=== PATIENT | male | born 1960 | race Caucasian/White ===

== ENCOUNTER 2016-05-25 10:10 | Inpatient (IN) | payer BC ==
[2016-05-25] MEDS ORDERED: IPRATROPIUM/ALBUTEROL (0.5MG/3MG) NEB INH ONE (10:43)
[2016-05-25] MEDS ORDERED: BENZONATATE 100 MG CAPSULE PO ONE (10:43)
--- NOTE | 2016-05-25 10:43 | Emergency Department Record ---
History of Present Illness - General Chief Complaint: Cough Stated Complaint: COUGH Time Seen by Provider: 05/25/16 10:28 Source: Patient, Family Mode of Arrival: Ambulatory Limitations: No limitations - History of Present Illness Initial Comments: 55 yo male presents with continued cough, productive sputum that is grayish for the last several days. He has had sinus drainage as well. He has felt like he has had hot and cold spells. No rash. He has had sinus pressure and ear pressure. He has seen his doctor on 3 occasions in the last one month. He was treated with augmentin, zithromax twice. He had a CXR 04/22. No blood in the sputum. MD Complaint: Cough Onset/Timin -: Month(s) Severity: Moderate Severity scale (1-10): 3 Consistency: Constant - Related Data Home Medications Medication Instructions Recorded Confirmed Last Taken Omeprazole [Prilosec] 20 mg PO DAILY 04/04/15 05/25/16 1 Day Ago Calcium Citrate/Vitamin D3 1 each PO DAILY 10/31/15 05/25/16 1 Day Ago [Citracal-Vit D 200 mg-250 Tab] Tamoxifen Citrate 20 mg PO DAILY 10/31/15 05/25/16 1 Day Ago Fexofenadine/Pseudoephedrine 1 tab PO QD tab 12/18/15 05/25/16 1 Day Ago [Suzi-D 24 Hour Tablet] Testosterone [Androgel] 1 apply TOP DAILY #375 04/07/16 05/25/16 1 Day Ago Allergies Allergy/AdvReac Type Severity Reaction Status Date / Time No Known Drug Allergies Allergy Verified 05/25/16 10:23 Travel Screening - Travel/Exposure Within Last 30 Days Have you traveled within the last 30 days?: No - Travel/Exposure Within Last Year Have you traveled outside the [place] in the last year?: No - Additonal Travel Details Have you been exposed to anyone with a communicable illness?: No - Travel Symptoms Symptom Screening: None Review of Systems Constitutional: Reports: Chills, Fever Eyes: Denies: Eye discharge, Eye pain, Photophobia, Vision change ENT: Reports: Congestion, Ear pain, Throat pain Respiratory: Reports: Cough. Denies: Hemoptysis Cardiovascular: Denies: Chest pain, Palpitations, Syncope Endocrine: Denies: Fatigue, Polydipsia, Polyuria Gastrointestinal: Denies: Abdominal pain, Diarrhea, Nausea, Vomiting Genitourinary: Denies: Dysuria, Frequency, Hematuria, Urgency Musculoskeletal: Denies: Arthralgia, Back pain, Myalgia, Neck pain Skin: Denies: Bruising, Change in color, Rash Neurological: Denies: Headache, Numbness, Weakness Psychiatric: Denies: Anxiety Hematological/Lymphatic: Denies: Blood Clots, Easy bleeding, Easy bruising, Swollen glands Past Medical History - SOCIAL HISTORY Smoking Status: Never smoker Alcohol Use: None, Rare Drug Use: None - RESPIRATORY Hx Respiratory Disorders: Yes Hx Asthma: Yes Hx Bronchitis: Yes Hx Pneumonia: Yes Comment:: admitted in in 03/2015 for infuenza A - CARDIOVASCULAR Hx Cardio Disorders: Yes Hx Hypertension: Yes - NEURO Hx Neuro Disorders: No - GI Hx GI Disorders: Yes Hx Reflux: Yes - Hx Genitourinary Disorders: Yes Hx Kidney Stones: Yes - ENDOCRINE Hx Endocrine Disorders: Yes Hx Diabetes: Yes (borderline) - MUSCULOSKELETAL Hx Musculoskeletal Disorders: Yes Hx Arthritis: Yes Hx Osteoporosis: Yes - PSYCH Hx Psych Problems: Yes Hx Depression: Yes - HEMATOLOGY/ONCOLOGY Hx Hematology/Oncology Disorders: Yes Hx Cancer: Yes (breast, skin, pituitary) Hx Radiation Therapy: Yes Family Medical History Any Significant Family History?: Yes Physical Exam - General General Appearance: Alert, Oriented x3, Cooperative, No acute distress Limitations: No limitations - Head Head exam: Normal inspection - Eye Eye exam: Normal appearance, PERRL. negative: Conjunctival injection - ENT ENT exam: Normal exam, Mucous membranes moist, TM's normal bilaterally. negative: Normal orophraynx (mild erythema) Ear exam: Normal external inspection. negative: External canal tenderness Nasal Exam: Discharge Mouth exam: Normal external inspection, Tongue normal Teeth exam: Normal inspection. negative: Dental caries Throat exam: Tonsillar erythema. negative: Tonsillomegaly, Tonsillar exudate, R peritonsillar mass, L peritonsillar mass - Neck Neck exam: Normal inspection, Full ROM. negative: Tenderness - Respiratory Respiratory exam: Decreased breath sounds, Prolonged expiratory (mild), Rhonchi , Other (No conversational dyspnea). negative: Stridor, Wheezes - Cardiovascular Cardiovascular Exam: Regular rate, Normal rhythm, Normal heart sounds - GI/Abdominal GI/Abdominal exam: Soft - Rectal Rectal exam: Deferred - exam: Deferred - Extremities Extremities exam: Normal inspection, Full ROM, Normal capillary refill. negative: Tenderness - Back Back exam: Reports: Normal inspection, Full ROM. Denies: Muscle spasm, Rash noted, Tenderness - Neurological Neurological exam: Alert, Normal gait, Oriented X3 - Psychiatric Psychiatric exam: Normal affect, Normal mood. negative: Agitated, Anxious - Skin Skin exam: Dry, Intact, Normal color, Warm Course Vital Signs 05/25/16 10:12 Temperature 97.4 F L Pulse Rate 117 H Respiratory 20 Rate Blood Pressure 134/112 Pulse Ox 92 L - Reevaluation(s) Reevaluation #1: The labs were reviewed WBC is 14 (he is on steroids) Glucose is 317 (he is a diabetic) 05/25/16 11:48 Reevaluation #2: No acute changes on the CXR No changes from the prior CXR 05/25/16 11:48 Reevaluation #3: The patient has continued to cough, short of breath, in spite prior out patient treatment 05/25/16 11:58 Reevaluation #4: I SW the radiology, no central PE but the remainder limited by timing There is bronchiol debris CW bronchitis, pneumonitis 05/25/16 13:47 - Consultations Consultation #1: I SW Yue Bacon for OBS given his peristent wheeze, cough, tachycardia and saturations down to low 90'2 Medical Decision Making - Lab Data Result diagrams: 05/25/16 10:55 05/25/16 10:55 Disposition Disposition: Admit Clinical Impression: COPD exacerbation Decision to Admit: Admit from ER Decision to Admit Date: 05/25/16 Decision to Admit Time: 12:01 Forms: Patient Portal Access Time of Disposition: 12:01
[2016-05-25 11:03] LABS: BASO % 0.3 % (0-6); EOS % 0.1 % (0-6); GRAN % 77.3 % (47-80); HEMATOCRIT 48.1 % (42.0-52.0); HEMOGLOBIN 16.8 gm/dl (14.0-18.0); LYMPH % 16.8 % (16-45); MEAN CELL VOLUME 84.4 fl (81-97); MEAN CORPUSCULAR HEMOGLOBIN 29.5 pg (27-33); MEAN CORPUSCULAR HGB CONC 34.9 g/dl (32-36); MEAN PLATELET VOLUME 12.3 fl (7.4-10.4); MONO % 5.5 % (0-9); PLATELET COUNT 220 K/uL (130-400); RED CELL DISTRIBUTION WIDTH 13.6 % (11.5-14.5); WHITE BLOOD COUNT W/O DIFF 14.4 K/uL (4.2-12.2)
[2016-05-25 11:13] LABS: INFLUENZA A NEGATIVE (NEGATIVE); INFLUENZA B NEGATIVE (NEGATIVE)
[2016-05-25 11:16] LABS: BLOOD UREA NITROGEN 23 mg/dL (9-20); CREATININE 1.1 mg/dL (0.66-1.25); EST GLOMERULAR FILTRATION RATE > 60 ml/min; GLUCOSE,RANDOM 317 mg/dL (70-110)
[2016-05-25] MEDS ORDERED: 0.9 % SODIUM CHLORIDE 1,000 ML BAG IV ONE (11:55)
[2016-05-25] MEDS ORDERED: IPRATROPIUM/ALBUTEROL (0.5MG/3MG) NEB INH PRN (12:28)
[2016-05-25] MEDS ORDERED: ACETAMINOPHEN 500 MG TABLET PO PRN (12:28)
[2016-05-25] MEDS ORDERED: ALBUTEROL SULFATE (0.083%) 2.5 MG/3 ML NEB INH PRN (12:28)
[2016-05-25] MEDS ORDERED: 0.9 % SODIUM CHLORIDE 1000ML 1,000 ML IV PRN ×2 (12:28→18:37)
[2016-05-25] MEDS ORDERED: CEFTRIAXONE SODIUM 1 GM in 0.9 % SODIUM CHLORIDE 100ML 100 ML IVPB SCH (12:30)
[2016-05-25] MEDS ORDERED: HYDROCHLOROTHIAZIDE 25 MG TABLET PO SCH (12:30)
[2016-05-25] MEDS: IPRATROPIUM/ALBUTEROL (0.5MG/3MG) NEB INH SCH ×4 (15:07→22:53)
[2016-05-25] MEDS ORDERED: ENOXAPARIN 100 MG/ML SYR SQ SCH ×3 (17:20→22:00)
[2016-05-25] MEDS: NOVOLOG FLEXPEN (INSULIN ASPART) 100 UNITS/ML SQ PRN (22:35)
[2016-05-26] MEDS: IPRATROPIUM/ALBUTEROL (0.5MG/3MG) NEB INH SCH ×5 (05:55→22:30)
[2016-05-26] MEDS ORDERED: ENOXAPARIN 100 MG/ML SYR SQ SCH ×2 (06:10→18:00)
[2016-05-26 06:21] LABS: BASO % 0.3 % (0-6); EOS % 0.2 % (0-6); GRAN % 65.9 % (47-80); HEMATOCRIT 42.6 % (42.0-52.0); HEMOGLOBIN 14.7 gm/dl (14.0-18.0); LYMPH % 26.4 % (16-45); MEAN CELL VOLUME 85.2 fl (81-97); MEAN CORPUSCULAR HEMOGLOBIN 29.4 pg (27-33); MEAN CORPUSCULAR HGB CONC 34.5 g/dl (32-36); MEAN PLATELET VOLUME 12.1 fl (7.4-10.4); MONO % 7.2 % (0-9); PLATELET COUNT 190 K/uL (130-400); RED CELL DISTRIBUTION WIDTH 13.8 % (11.5-14.5); WHITE BLOOD COUNT W/O DIFF 12.8 K/uL (4.2-12.2)
[2016-05-26 06:32] LABS: ALB/GLOB RATIO 1.2 (1.1-1.8); ALBUMIN 3.6 gm/dL (3.5-5.0); ALKALINE PHOSPHATASE 61 U/L (38-126); ALT/SGPT 37 U/L (21-72); ANION GAP 11.1 (7-16); AST/SGOT 16 U/L (17-59); BILIRUBIN,TOTAL 0.53 mg/dL (0.2-1.3); BLOOD UREA NITROGEN 20 mg/dL (9-20); CARBON DIOXIDE 22.9 mmol/L (22-30); CREATININE 0.9 mg/dL (0.66-1.25); EST GLOMERULAR FILTRATION RATE > 60 ml/min; GLUCOSE,RANDOM 143 mg/dL (70-110); TOTAL PROTEIN 6.5 gm/dL (6.3-8.2)
--- NOTE | 2016-05-26 07:13 | RADIOLOGY REPORT ---
EXAM: CHEST, TWO VIEWS HISTORY: PRODUCTIVE COUGH AND DIFFICULTY IN BREATHING FOR A FEW MONTHS. BREAST CARCINOMA HISTORY. TECHNIQUE: Upright PA and lateral views of the chest were obtained. Comparison: Two view chest radiographic examination dated 04/22/16. FINDINGS: The heart is not enlarged and the pulmonary vasculature is nondilated. The lungs and pleural spaces remain clear. The lungs are borderline to mildly hyperinflated, stable. There are degenerative changes of the visualized spine. IMPRESSION: NO RADIOGRAPHIC EVIDENCE OF ACUTE CARDIOPULMONARY DISEASE WITHOUT CHANGE SINCE . BORDERLINE TO MILD HYPERINFLATION OF THE LUNGS REDEMONSTRATED. JOB NUMBER: [id number] MTDD
--- NOTE | 2016-05-26 07:29 | CT ANGIOGRAM REPORT ---
EXAM: CT ANGIOGRAM OF THE CHEST WITH POST PROCESSING HISTORY: SHORTNESS OF BREATH AND TACHYCARDIA FOR SEVERAL WEEKS. RECENT ANTIBIOTIC THERAPY WITHOUT IMPROVEMENT. TECHNIQUE: Routine CTA examination of the chest was performed utilizing a pulmonary embolus protocol with 95 ml of Omnipaque 350 utilized. Maximum intensity projection reformatted images were generated in the coronal and sagittal planes and reviewed. Comparison: Same day two view chest radiographic examination. CT angiogram of the chest dated 11/01/15. FINDINGS: Opacification of the pulmonary arteries is suboptimal markedly limiting evaluation. No large central pulmonary embolus is, however, visualized. The heart is not enlarged. There is no evidence of right heart strain. There is mild atherosclerosis of the thoracic aorta without aneurysmal dilatation. No thoracic aortic dissection is seen. There are a few nonenlarged lymph nodes scattered within the mediastinum. Previously demonstrated mild adenopathy in the subcarinal and right hilar regions has regressed. Lymphoid tissue within the inferior right hilum remains near the upper limits of normal, however. There is mild bronchial wall thickening with some mucous plugging scattered within the segmental bronchi of the lower lobes. There is associated minor patchy opacities within the posterior lung bases, right greater than left consistent with atelectasis or mild pneumonitis. The previously demonstrated infiltrate in the lateral mid right lung has cleared. No pleural or pericardial effusion is seen. The adrenal glands are not enlarged. There is diffuse hepatic steatosis. Healed granulomatous disease is again noted within the liver, spleen, and scattered within the left hemithorax. No lytic or blastic bone lesion is seen. IMPRESSION: 1. SUBOPTIMAL OPACIFICATION LIMITS EVALUATION FOR PULMONARY EMBOLIC DISEASE. NO LARGE CENTRAL PULMONARY EMBOLUS, HOWEVER, IDENTIFIED. 2. INTERVAL CLEARING OF INFILTRATE FROM THE LATERAL RIGHT MID LUNG COMPARED TO THE PRIOR CTA EXAMINATION. 3. NEW BRONCHIAL WALL THICKENING WITHIN MULTIPLE SEGMENTAL BRONCHI OF THE LOWER LUNGS WITH SMALL AREAS OF MUCOUS PLUGGING CONSISTENT WITH BRONCHITIS. ADDITIONALLY, THERE ARE MINOR PATCHY OPACITIES IN THE DEPENDENT LUNG BASES CONSISTENT WITH MILD ATELECTASIS OR INFILTRATE. 4. HEALED GRANULOMATOUS DISEASE REDEMONSTRATED IN THE LEFT HEMITHORAX, LIVER AND SPLEEN. 5. HEPATIC STEATOSIS. JOB NUMBER: [id number] MTDD
[2016-05-26] MEDS: NOVOLOG FLEXPEN (INSULIN ASPART) 100 UNITS/ML SQ PRN ×3 (08:22→23:44)
[2016-05-26] MEDS ORDERED: ENOXAPARIN 40 MG/0.4 ML SYR SC SCH (10:00)
[2016-05-26] MEDS ORDERED: ASPIRIN 81 MG CHEWABLE TABLET PO ONE (10:05)
[2016-05-26] MEDS: HYDROCHLOROTHIAZIDE 25 MG TABLET PO SCH (10:07)
[2016-05-26] MEDS: POTASSIUM CHLORIDE 20 MEQ TABLET PO SCH (10:07)
[2016-05-26] MEDS: BENZONATATE 100 MG CAPSULE PO PRN (10:08)
[2016-05-26] MEDS: AZITHROMYCIN 500 MG TABLET PO SCH (10:08)
[2016-05-26] MEDS: LISINOPRIL 20 MG TABLET PO SCH (10:08)
[2016-05-26] MEDS: PANTOPRAZOLE SODIUM 40 MG TABLET PO SCH (10:09)
[2016-05-26] MEDS: METHYLPREDNISOLONE PF 125MG/VIAL IVP SCH (10:11)
[2016-05-26 10:24] LABS: CKMB 0.4 ug/L (0-6)
[2016-05-26 10:28] LABS: TROPONIN I < 0.012 ng/mL (0.00-0.034)
[2016-05-26] MEDS: TAMOXIFEN 20 MG PO SCH (11:57)
[2016-05-26] MEDS: ANDROGEL TOP SCH (11:57)
[2016-05-26] MEDS: CEFTRIAXONE SODIUM 1 GM in 0.9 % SODIUM CHLORIDE 100ML 100 ML IVPB SCH ×2 (11:58→21:52)
--- NOTE | 2016-05-26 12:20 | History & Physical ---
History of Present Illness - Date of Service Date of Service for History & Physical: 05/26/16 - History of Present Illness Admitting Diagnosis: COPD exacerbation History of Present Illness: 55 yo male admitted w/ COPD exacerbation. PMHx of seasonal allergies, chronic sinusitis, asthma (cold induced vs. chemical exposure), SARANYA, pituitary gland tumore (prolactinoma hx), pre diabetic, HTN, acid reflux, exposure to respiratory chemicals at work and obesity. Patient presented to our ED 05/25/16 c/o continue productive cough for the past several days. Onset about 2 mo's ago though worsened over the past 3-5 days. Yellow/whitlock sputum. Assoc sxs include diaphoresis, sinus/ear pressure. [facility]. He was treated for sinusitis with Azithromycin and PO steroid. Upon presentation to the ED, temp of 97.4, HR 117 , RR 20, BP 134/112, pulse ox 92% on RA. WBC 14.4, hgb 16.8, hct 48.1, plt 220 , glucose 317, BUN 23. influenza negative. pertussis pending. Sputum cx: mouth luan contamination. CXR: NAP. Chest angio: bronchial wall thickening w/in multiple segments of bronchi of lower lung with small areas of mucus plugging c/ w bronchitis. mild atelectasis, healed granulomatous disease, hepatic steatosis. Patient started on IV NS, 500 mg of PO azithromycin, 1 gm of IV Rocephin Q 12 hours, albuterol inhalation Q2 hours prn and Duo neb treatments Q 6 hours. Patient placed on registered nurse cardiac and admitted for further medical management. 05/26/16: Patient sitting up in chair comfortably. Patient feels more comfortable sitting up stating he feels as if he's "drowning" when he lies flat. Patient c/o diaphoresis for the past 3-4 days. Afebrile. No chest, jaw or upper extremity pain. No weakness of upper extremities. States he has a h/ o PNA 1 year ago. 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 Followed with a Tour Manager a few months ago. PFT's normal. He suspected cold induced vs. chemical induced asthma. Patient started on Dulera 100-5mcg 2 puffs Q 12 hours. Patient states he felt well during his visit with the parachute harness rigger. Patient feels as if his respiratory status improves immediately when he travels to [place]. Patient follows with an restaurant kitchen and service manager for h/o prolactinoma. His glucose level has also been monitored as patient has been in the pre diabetic vs. diabetic range. Most recent hgbA1c was 7.31. No currently on any diabetic therapy. Patient's been on steroids during the past month which may be contributing to elevated glucose during admission. Patient reports 10-15 # weight loss over the past 1-2 months. He contributes this to intentional dietary changes to help improve glucose level. +GABBI, orthopnea, fever/chills, fatigue. Denies change in bowel habits, blood in stool, nvd, rash, change in appetite, chest pain, dysuria, or joint pain. + urinary freq since starting HCTZ. No previous history of DVT, PE, TX or CVA. denies family h/o cardiac disease. Has never been told he had high cholesterol. no recent travel or sick contacts. PCP: Dr. Haynes Pulmnology: Cipriano mccrary Endocrinology: Dr. Martini Travel Screening - Travel/Exposure Within Last 30 Days Have you traveled within the last 30 days?: Yes Location Detail:: [facility] - Travel/Exposure Within Last Year Have you traveled outside the [place] in the last year?: No - Additonal Travel Details Have you been exposed to anyone with a communicable illness?: No Exposure Details:: Unknown - Travel Symptoms Symptom Screening: None Review of Systems Constitutional: Reports: Chills, Fever Eyes: Denies: Eye discharge, Eye pain, Photophobia, Vision change ENT: Reports: Congestion, Ear pain, Throat pain Respiratory: Reports: Cough. Denies: Hemoptysis Cardiovascular: Denies: Chest pain, Palpitations, Syncope Endocrine: Denies: Fatigue, Polydipsia, Polyuria Gastrointestinal: Denies: Abdominal pain, Diarrhea, Nausea, Vomiting Genitourinary: Denies: Dysuria, Frequency, Hematuria, Urgency Musculoskeletal: Denies: Arthralgia, Back pain, Myalgia, Neck pain Skin: Denies: Bruising, Change in color, Rash Neurological: Denies: Headache, Numbness, Weakness Psychiatric: Denies: Anxiety Hematological/Lymphatic: Denies: Blood Clots, Easy bleeding, Easy bruising, Swollen glands Past Medical History - SOCIAL HISTORY Smoking Status: Never smoker - RESPIRATORY Hx Respiratory Disorders: Yes Hx Asthma: Yes Hx Bronchitis: Yes Hx Pneumonia: Yes Comment:: admitted in in 03/2015 for infuenza A - CARDIOVASCULAR Hx Cardio Disorders: Yes Hx Hypertension: Yes - NEURO Hx Neuro Disorders: No - GI Hx GI Disorders: Yes Hx Reflux: Yes - Hx Genitourinary Disorders: Yes Hx Kidney Stones: Yes - ENDOCRINE Hx Endocrine Disorders: Yes Hx Diabetes: Yes (borderline) - MUSCULOSKELETAL Hx Musculoskeletal Disorders: Yes Hx Arthritis: Yes Hx Osteoporosis: Yes - PSYCH Hx Psych Problems: Yes Hx Depression: Yes - HEMATOLOGY/ONCOLOGY Hx Hematology/Oncology Disorders: Yes Hx Cancer: Yes (breast, skin, pituitary) Hx Radiation Therapy: Yes Family Medical History Any Significant Family History?: Yes H&P Meds/Allergies - Allergies Allergies: Allergies Allergy/AdvReac Type Severity Reaction Status Date / Time No Known Drug Allergies Allergy Verified 05/25/16 10:23 - Home Medications Home Medications Medication Instructions Recorded Confirmed Last Taken Omeprazole [Prilosec] 20 mg PO DAILY 04/04/15 05/25/16 1 Day Ago Calcium Citrate/Vitamin D3 1 each PO DAILY 10/31/15 05/25/16 1 Day Ago [Citracal-Vit D 200 mg-250 Tab] Tamoxifen Citrate 20 mg PO DAILY 10/31/15 05/25/16 1 Day Ago Fexofenadine/Pseudoephedrine 1 tab PO QD tab 12/18/15 05/25/16 1 Day Ago [Suzi-D 24 Hour Tablet] Testosterone [Androgel] 1 apply TOP DAILY #375 04/07/16 05/25/16 1 Day Ago - Active Medications Active Medications: Current Medications Acetaminophen (Tylenol 500mg Tab) 1,000 mg PO Q6H PRN PRN Reason: PAIN/TEMP Albuterol Sulfate () 2.5 mg INH RESP.Q2H PRN PRN Reason: DIFFICULTY IN BREATHING Albuterol/Ipratropium (Duoneb) 3 ml INH RESP.Q6H.[facility] Last Admin: 05/26/16 10:36 Dose: 3 ml Azithromycin (Zithromax) 500 mg PO DAILY [facility] Last Admin: 05/26/16 10:08 Dose: 500 mg Benzonatate (Tessalon) 100 mg PO TID PRN PRN Reason: COUGH Last Admin: 05/26/16 10:08 Dose: 100 mg Enoxaparin Sodium (Lovenox) 100 mg SQ Q12H [facility] Enoxaparin Sodium (Lovenox) 30 mg SQ Q12H [facility] Hydrochlorothiazide (Hctz 25mg) 25 mg PO DAILY [facility] Last Admin: 05/26/16 10:07 Dose: 25 mg Sodium Chloride () 1,000 mls @ 50 mls/hr IV .Q20H PRN PRN Reason: LARGE VOLUME IV Ceftriaxone Sodium 1 gm/ (Sodium Chloride) 100 mls @ 100 mls/hr IVPB Q12H [facility] Stop: 05/30/16 12:31 Last Admin: 05/26/16 11:58 Dose: 100 mls/hr Insulin Aspart (Novolog Flexpen) 0 unit SQ TIDINS PRN; Protocol PRN Reason: Hyperglycemica Last Admin: 05/26/16 08:22 Dose: 4 unit Lisinopril (Zestril) 40 mg PO DAILY [facility] Last Admin: 05/26/16 10:08 Dose: 40 mg Methylprednisolone Sodium Succinate (Solu-Medrol) 60 mg IVP DAILY [facility] Last Admin: 05/26/16 10:11 Dose: 60 mg Pantoprazole Sodium (Protonix) 40 mg PO DAILYAC [facility] Last Admin: 05/26/16 10:09 Dose: 40 mg Patient Own Med: (Tamoxifen 20 Mg) 1 each PO DAILY [facility] Last Admin: 05/26/16 11:57 Dose: 1 each Patient Own Med: (Androgel) 1 each TOP DAILY [facility] Last Admin: 05/26/16 11:57 Dose: 1 each Potassium Chloride (Klor-Con) 20 meq PO DAILY [facility] Last Admin: 05/26/16 10:07 Dose: 20 meq Physical Exam - Vital Signs Vital Signs: Vital Signs - Last 24 Hrs Temp Pulse Pulse Resp BP BP Pulse Ox 05/26/16 10:38 104 H 18 05/26/16 05:55 107 H 16 93 L 05/26/16 03:36 97.5 F L 106 H 20 147/80 94 L 05/26/16 00:47 97.7 F 106 H 20 142/74 95 05/25/16 21:05 94 L 05/25/16 21:03 119 H 20 94 L 05/25/16 20:00 97.6 F 123 H 24 165/94 95 05/25/16 18:31 97.7 F 124 H 20 133/82 93 L 05/25/16 14:15 104 H 18 94 L 05/25/16 14:00 97.4 F L 112 H 20 157/108 95 05/25/16 13:58 104 H 20 131/83 96 - General General Appearance: Alert, Oriented x3, Cooperative, No acute distress Limitations: No limitations - Head Head exam: Normal inspection - Eye Eye exam: Normal appearance, PERRL. negative: Conjunctival injection - ENT ENT exam: Normal exam, Mucous membranes moist, TM's normal bilaterally. negative: Normal orophraynx (mild erythema) Ear exam: Normal external inspection. negative: External canal tenderness Nasal Exam: Discharge Mouth exam: Normal external inspection, Tongue normal Teeth exam: Normal inspection. negative: Dental caries Throat exam: Tonsillar erythema. negative: Tonsillomegaly, Tonsillar exudate, R peritonsillar mass, L peritonsillar mass - Neck Neck exam: Normal inspection, Full ROM. negative: Tenderness - Respiratory Respiratory exam: Decreased breath sounds, Prolonged expiratory (mild), Rhonchi , Other (No conversational dyspnea). negative: Stridor, Wheezes - Cardiovascular Cardiovascular Exam: Regular rate, Normal rhythm, Normal heart sounds - GI/Abdominal GI/Abdominal exam: Soft - Rectal Rectal exam: Deferred - exam: Deferred - Extremities Extremities exam: Normal inspection, Full ROM, Normal capillary refill. negative: Tenderness - Back Back exam: Reports: Normal inspection, Full ROM. Denies: Muscle spasm, Rash noted, Tenderness - Neurological Neurological exam: Alert, Normal gait, Oriented X3 - Psychiatric Psychiatric exam: Normal affect, Normal mood. negative: Agitated, Anxious - Skin Skin exam: Diaphoretic, Erythema (facial), Intact, Normal color, Warm Results - Labs Result Diagrams: 05/26/16 05:52 05/26/16 05:52 Labs Last 24 Hours: Laboratory Results - last 24 hr 05/25/16 05/25/16 05/25/16 17:00 21:55 22:00 WBC RBC Hgb Hct MCV MCH MCHC RDW Plt Count MPV Gran % Lymphocytes % Monocytes % Eosinophils % Basophils % Sodium Potassium Chloride Carbon Dioxide Anion Gap BUN Creatinine Estimated GFR POC Glucose 289 H 254 H Cancelled Random Glucose Calcium Total Bilirubin AST ALT Alkaline Phosphatase CK-MB (CK-2) Troponin I Total Protein Albumin Globulin Albumin/Globulin Ratio 05/26/16 05/26/16 05/26/16 05:52 05:52 09:55 WBC 12.8 H RBC 5.00 Hgb 14.7 Hct 42.6 MCV 85.2 MCH 29.4 MCHC 34.5 RDW 13.8 Plt Count 190 MPV 12.1 H Gran % 65.9 Lymphocytes % 26.4 Monocytes % 7.2 Eosinophils % 0.2 Basophils % 0.3 Sodium 138 Potassium 3.3 L Chloride 104 Carbon Dioxide 22.9 Anion Gap 11.1 BUN 20 Creatinine 0.9 Estimated GFR > 60 POC Glucose Random Glucose 143 H Calcium 8.5 Total Bilirubin 0.53 AST 16 L ALT 37 Alkaline Phosphatase 61 CK-MB (CK-2) 0.4 Troponin I < 0.012 Total Protein 6.5 Albumin 3.6 Globulin 2.9 Albumin/Globulin Ratio 1.2 VTE H&P Assessment - Risk for VTE Risk for VTE: Yes Risk Level: Low (decreased ambulation) Risk Assessment Date: 05/26/16 Risk Assessment Time: 10:00 VTE Orders Placed or Will Be Placed: Yes Plan - Inpatient Certification Inpatient Certification: Risk factors: dyspnea, orthopnea, diaphoresis, fatigue nights: 2-3 nights treatment: supp O2, breathing treatments, IV antibiotics, anti coag, ultrasound to r/o dvt, cardiac monitoring, cardiac work up outpatient plan: self, home care 05/26/16 13:23 - Detailed Diagnosis and Plan (1) COPD exacerbation Current Visit: Yes Status: Acute Base Code: J44.1 - CHRONIC OBSTRUCTIVE PULMONARY DISEASE W (ACUTE) EXACERBATION Comment: 05/26/17: 55 yo male admitted w/ COPD exacerbation. pmhx of SARANYA, asthma (cold vs. chemical induced) and h/o PNA. no h/o smoking. Oxygen saturation 93% on 2 L's. - resp therapy: PO Azithromycin 500 mg PO qd, 1 gm IV Rocephin Q12 hours, Duo neb Q6 hours, Albuterol Q 2 hours PRN - Will add Mucinex 1200 mg bid and Tessalon perlse 100 mg TID. - continue home medications. - resp PCR viral panel, pertussis, repeat sputum culture - cardiact monitor, VS Q4 hours. (2) Elevated glucose Current Visit: Yes Status: Acute Base Code: R73.09 - OTHER ABNORMAL GLUCOSE Comment: 05/26/16: most recent hgbA1c: 7.31I suspect related to steroid therapy. continue accu checks achs. monitor readings and consider initiating moderate sliding scale if necessary. (3) Tachycardia Current Visit: Yes Status: Acute Base Code: R00.0 - TACHYCARDIA, UNSPECIFIED Comment: 05/26/16: infection vs. cardiac vs. endocrine vs. steroid vs. other? - registered nurse cardiac, continuous - EKG, cardiac enzymes x 3. First troponin negative. patient denies chest pain , heart palpitations - afberile. WBC 14 - pretussis & resp PCR panel pending - repeat sputum cx ordered - check TSH (4) Full code status Current Visit: No Status: Acute Base Code: Z78.9 - OTHER SPECIFIED HEALTH STATUS Comment: 05/26/16- Patient is full code status (5) DVT prophylaxis Current Visit: No Status: Acute Base Code: [id number] - Comment: 05/26/16: Patient was at increased risk for DVT noting h/o malignancy and restricted mobility. Chest angio unable to r/o PE. Will obtain LE dopplers. Lovenox 1mg/kg Q12 hours prophylactically for now.
[2016-05-26] MEDS: GUAIFENESIN 1,200 MG TABLET PO SCH ×2 (15:53→21:52)
[2016-05-26 17:07] LABS: CKMB 0.5 ug/L (0-6)
[2016-05-26 17:08] LABS: TROPONIN I < 0.012 ng/mL (0.00-0.034)
[2016-05-26] MEDS ORDERED: ENOXAPARIN 30 MG/0.3 ML SYR SQ SCH (18:00)
[2016-05-26 22:35] LABS: CKMB 0.4 ug/L (0-6); TROPONIN I < 0.012 ng/mL (0.00-0.034)
[2016-05-27] MEDS: IPRATROPIUM/ALBUTEROL (0.5MG/3MG) NEB INH SCH ×3 (05:38→17:15)
[2016-05-27] MEDS: PANTOPRAZOLE SODIUM 40 MG TABLET PO SCH (06:26)
--- NOTE | 2016-05-27 07:22 | US VENOUS DOPPLER REPORT ---
EXAM: VENOUS DOPPLER ULTRASOUND OF THE BILATERAL LOWER EXTREMITIES HISTORY: EDEMA. DIFFICULTY IN BREATHING. TECHNIQUE: Hopson scale, color Doppler and Duplex Doppler evaluation of the deep venous structures of each lower extremity was performed from the level of the common femoral/greater saphenous veins into the lower legs. Comparison: None. FINDINGS: RIGHT LOWER EXTREMITY: Hopson scale images demonstrate the deep venous structures to be anechoic and easily compressible. Normal venous waveforms are noted at all levels and these waveforms are augmentable. LEFT LOWER EXTREMITY: Hopson scale images demonstrate the deep venous structures to be anechoic and easily compressible. Blood flow is noted at all levels with color Doppler and Duplex Doppler evaluation. Normal venous waveforms are noted at all levels and these are augmentable. IMPRESSION: NO EVIDENCE OF DEEP VENOUS THROMBOSIS WITHIN EITHER LOWER EXTREMITY. JOB [facility]BER: [id number] [facility]
[2016-05-27] MEDS ORDERED: ENOXAPARIN 40 MG/0.4 ML SYR SQ SCH (10:00)
[2016-05-27] MEDS: CEFTRIAXONE SODIUM 1 GM in 0.9 % SODIUM CHLORIDE 100ML 100 ML IVPB SCH (10:52)
[2016-05-27] MEDS: GUAIFENESIN 1,200 MG TABLET PO SCH (10:53)
[2016-05-27] MEDS: BENZONATATE 100 MG CAPSULE PO PRN (10:54)
[2016-05-27] MEDS: AZITHROMYCIN 500 MG TABLET PO SCH (10:54)
[2016-05-27] MEDS: POTASSIUM CHLORIDE 20 MEQ TABLET PO SCH (10:55)
[2016-05-27] MEDS: HYDROCHLOROTHIAZIDE 25 MG TABLET PO SCH (10:55)
[2016-05-27] MEDS: TAMOXIFEN 20 MG PO SCH (10:56)
[2016-05-27] MEDS: METHYLPREDNISOLONE PF 125MG/VIAL IVP SCH (10:56)
[2016-05-27] MEDS: LISINOPRIL 20 MG TABLET PO SCH (10:58)
[2016-05-27] MEDS: ANDROGEL TOP SCH (10:58)
[2016-05-27] MEDS: NOVOLOG FLEXPEN (INSULIN ASPART) 100 UNITS/ML SQ PRN (11:58)
--- NOTE | 2016-05-27 17:13 | Discharge Summary ---
Providers Discharge Summary Date: 05/27/16 Date of admission: 05/25/16 13:57 Expected Date of Discharge: 05/27/16 Attending physician: HARPER FISHMAN Primary care physician: HARPER FISHMAN Physical Exam - Vital Signs Vital Signs: Vital Signs - Last 24 Hrs Temp Pulse Resp BP Pulse Ox 05/27/16 14:00 97.6 F 100 H 18 133/74 94 L 05/27/16 10:00 97.8 F 90 20 146/74 94 L 05/27/16 09:00 90 20 05/27/16 06:00 97.5 F L 87 18 142/88 95 05/26/16 20:30 97.4 F L 112 H 22 137/56 94 L 05/26/16 17:53 97.8 F 115 H 20 121/90 94 L - General General Appearance: Alert, Oriented x3, Cooperative, No acute distress Limitations: No limitations - Head Head exam: Normal inspection - Eye Eye exam: Normal appearance, PERRL. negative: Conjunctival injection - ENT ENT exam: Normal exam, Mucous membranes moist, TM's normal bilaterally. negative: Normal orophraynx (mild erythema) Ear exam: Normal external inspection. negative: External canal tenderness Nasal Exam: Discharge Mouth exam: Normal external inspection, Tongue normal Teeth exam: Normal inspection. negative: Dental caries Throat exam: Tonsillar erythema. negative: Tonsillomegaly, Tonsillar exudate, R peritonsillar mass, L peritonsillar mass - Neck Neck exam: Normal inspection, Full ROM. negative: Tenderness - Respiratory Respiratory exam: Decreased breath sounds, Prolonged expiratory (mild), Rhonchi , Other (No conversational dyspnea). negative: Stridor, Wheezes - Cardiovascular Cardiovascular Exam: Regular rate, Normal rhythm, Normal heart sounds - GI/Abdominal GI/Abdominal exam: Soft - Rectal Rectal exam: Deferred - exam: Deferred - Extremities Extremities exam: Normal inspection, Full ROM, Normal capillary refill. negative: Tenderness - Back Back exam: Reports: Normal inspection, Full ROM. Denies: Muscle spasm, Rash noted, Tenderness - Neurological Neurological exam: Alert, Normal gait, Oriented X3 - Psychiatric Psychiatric exam: Normal affect, Normal mood. negative: Agitated, Anxious - Skin Skin exam: Diaphoretic, Erythema (facial), Intact, Normal color, Warm Hospitalization - Hospitalization Admission Diagnosis: COPD exacerbation - Problem List/Discharge Diagnosis (1) COPD exacerbation Status: Acute Base Code: J44.1 - CHRONIC OBSTRUCTIVE PULMONARY DISEASE W ( ACUTE) EXACERBATION Comment: 05/27/17: 55 yo male admitted w/ COPD exacerbation. pmhx of SARANYA, asthma (cold vs. chemical induced) and h/o PNA. no h/o smoking. Oxygen saturation 93% on 2 L's. - resp therapy: PO Azithromycin 500 mg PO qd, 1 gm IV Rocephin Q12 hours, Duo neb Q6 hours, Albuterol Q 2 hours PRN during hospitalization - Continue Mucinex 1200 mg bid and Tessalon perlse 100 mg TID. 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 Chest angio unable to r/o PE. BLE dopplers negative for DVTG. Lovenox 1mg/kg Q12 hours prophylactically during hospital stay. (3) Full code status Status: Acute Base Code: Z78.9 - OTHER SPECIFIED HEALTH STATUS Comment: 05/27/16- Patient is full code status - Hospitalization Course Disposition: Home, Self-Care Hospital Course: 55 yo male admitted w/ COPD exacerbation. PMHx of seasonal allergies, chronic sinusitis, asthma (cold induced vs. chemical exposure), SARANYA, pituitary gland tumore (prolactinoma hx), pre diabetic, HTN, acid reflux, exposure to respiratory chemicals at work and obesity. Patient presented to our ED 05/25/16 c/o continue productive cough for the past several days. Onset about 2 mo's ago though worsened over the past 3-5 days. Yellow/whitlock sputum. Assoc sxs include diaphoresis, sinus/ear pressure. Patient was seen in our [facility] on 05/19/16. He was treated for sinusitis with Azithromycin and PO steroid. Upon presentation to the ED, temp of 97.4, HR 117 , RR 20, BP 134/112, pulse ox 92% on RA. WBC 14.4, hgb 16.8, hct 48.1, plt 220 , glucose 317, BUN 23. influenza negative. pertussis pending. Sputum cx: mouth luan contamination. CXR: NAP. Chest angio: bronchial wall thickening w/in multiple segments of bronchi of lower lung with small areas of mucus plugging c/ w bronchitis. mild atelectasis, healed granulomatous disease, hepatic steatosis. Patient started on IV NS, 500 mg of PO azithromycin, 1 gm of IV Rocephin Q 12 hours, albuterol inhalation Q2 hours prn and Duo neb treatments Q 6 hours. Patient placed on public affairs manager and admitted for further medical management. 05/26/16: Patient sitting up in chair comfortably. Patient feels more comfortable sitting up stating he feels as if he's "drowning" when he lies flat. Patient c/o diaphoresis for the past 3-4 days. Afebrile. No chest, jaw or upper extremity pain. No weakness of upper extremities. States he has a h/ o PNA 1 year ago. 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 Followed with a Plastic Mould Maker a few months ago. PFT's normal. He suspected cold induced vs. chemical induced asthma. Patient started on Dulera 100-5mcg 2 puffs Q 12 hours. Patient states he felt well during his visit with the recreation coordinator. Patient feels as if his respiratory status improves immediately when he travels to [place]. Patient follows with an security test engineer for h/o prolactinoma. His glucose level has also been monitored as patient has been in the pre diabetic vs. diabetic range. Most recent hgbA1c was 7.31. No currently on any diabetic therapy. Patient's been on steroids during the past month which may be contributing to elevated glucose during admission. Patient reports 10-15 # weight loss over the past 1-2 months. He contributes this to intentional dietary changes to help improve glucose level. +GABBI, orthopnea, fever/chills, fatigue. Denies change in bowel habits, blood in stool, nvd, rash, change in appetite, chest pain, dysuria, or joint pain. + urinary freq since starting HCTZ. No previous history of DVT, PE, DC or CVA. denies family h/o cardiac disease. Has never been told he had high cholesterol. no recent travel or sick contacts. PCP: Dr. Fishman Pulmnology: Cipriano mccrary Endocrinology: Dr. Martini Procedures: Imaging and X-Rays 05/26/16 08:45 VENOUS DOPPLER LOWER EXT NAOMI [US] Stat Cardiology Procedures 05/26/16 09:36 EKG NOW Abnormal Labs: Abnormal Lab Results 05/25/16 05/25/16 05/26/16 Range/Units 17:00 21:55 05:52 WBC 12.8 H (4.2-12.2) K/uL MPV 12.1 H (7.4-10.4) fl Potassium (3.5-5.1) mmol/L POC Glucose 289 H 254 H (70-110) mg/dL Random Glucose (70-110) mg/dL AST (17-59) U/L 05/26/16 05/26/16 05/26/16 Range/Units 05:52 11:45 17:00 WBC (4.2-12.2) K/uL MPV (7.4-10.4) fl Potassium 3.3 L (3.5-5.1) mmol/L POC Glucose 286 H 352 H (70-110) mg/dL Random Glucose 143 H (70-110) mg/dL AST 16 L (17-59) U/L 05/26/16 05/27/16 Range/Units 22:45 11:45 WBC (4.2-12.2) K/uL MPV (7.4-10.4) fl Potassium (3.5-5.1) mmol/L POC Glucose 225 H 248 H (70-110) mg/dL Random Glucose (70-110) mg/dL AST (17-59) U/L Condition at Discharge: (2) Stable Discharge Medications - Discharge Medications Prescriptions: Levofloxacin [Levaquin] 500 mg PO DAILYFLUOR #7 tablet Albuterol Sulfate [Proair Hfa] 1 - 2 puff IH .EVERY 4-6 HOURS PRN #1 inhaler PRN Reason: Difficulty In Breathing Benzonatate [Tessalon Perles] 100 mg PO TID PRN #60 capsule PRN Reason: Cough Home Medications: Ambulatory Orders Omeprazole [Prilosec] 20 mg PO DAILY 04/04/15 [Last Taken 1 Day Ago] Calcium Citrate/Vitamin D3 [Citracal-Vit D 200 mg-250 Tab] 1 each PO DAILY 10/30 [Last Taken 1 Day Ago] Tamoxifen Citrate 20 mg PO DAILY 10/31/15 [Last Taken 1 Day Ago] Fexofenadine/Pseudoephedrine [Suzi-D 24 Hour Tablet] 1 tab PO QD tab [Last Taken 1 Day Ago] Testosterone [Androgel] 1 apply TOP DAILY #375 04/07/16 [Last Taken 1 Day Ago] Albuterol Sulfate [Proair Hfa] 1 - 2 puff IH .EVERY 4-6 HOURS PRN #1 inhaler [Last Taken Unknown] Benzonatate [Tessalon Perles] 100 mg PO TID PRN #60 capsule 05/27/16 [Last Taken Unknown] Insulin Aspart [Novolog Flexpen] 0 unit SQ TIDINS PRN #0 ml 05/27/16 [Last Taken Unknown] Levofloxacin [Levaquin] 500 mg PO DAILYFLUOR #7 tablet 05/27/16 [Last Taken Unknown] Discharge Plan - Discharge Instructions Activity at Discharge: Increase Activity as Tolerated Diet at Discharge: Advance to Usual Diet Instructions: Benzonatate (By mouth), Albuterol (By breathing), Levofloxacin ( By mouth), How to Use a Metered-Dose Inhaler (DC), Chronic Obstructive Pulmonary Disease (DC) Additional Instructions: 2 Activity: As tolerated Splint abdomen with cough 2 Diet: Regular, as tolerated 2 Consults: [] 2 Follow Up: [with primary care in 7-10 days] 2 Dressing/Wound Care: (Type) (Change) 2 Additional: [Continue home medications New medications Tessalon pearles 100mg three times per day or every 8 hours Pro air inhaled 1-2 puffs every 4 hours as needed for difficulty in breathing Levaquin 500mg daily for the next 7 days, take in the morning before food.]
[2016-05-28] MEDS ORDERED: LEVOFLOXACIN 500 MG TABLET PO SCH (06:00)
== END 2016-05-27 18:30 | disposition home or self-care (01) | DRG 192 ==
LOC: ER 10:10 → MEDSURG 13:57 → OBSVTOIN 13:57
PROVIDERS: ADMIT Family Medicine; ATTEND Family Medicine
DX: J44.1 Chronic obstructive pulmonary disease with (acute) exacerbation (principal); R00.0 Tachycardia, unspecified; Z78.9 Other specified health status; I10 Essential (primary) hypertension; R73.09 Other abnormal glucose
CPT/HCPCS: 36416; 71020; 71275; 80048; 80053; 82553; 82948; 84443; 84484; 85025; 87400; 93005; 93010; 93970; 94640; 94760; 94761; 99223; 99239; 99285; J1650; J2930; J7030